=== PATIENT | female | born 1965 | race American Indian/Alaskan Native ===

== ENCOUNTER 2019-09-19 11:09 | Emergency (ER) | payer OTHER ==
[2019-09-19 11:22] VITALS: BP 137/83
--- NOTE | 2019-09-19 11:25 | Emergency Department Report ---
Chief Complaint: Upper Respiratory Infection Stated Complaint: DIZZY/LIGHT HEADED/HOT/COLD - HPI History of Present Illness: 54 yo female who has been feeling hot and cold with fatigue for one week. No cough. No sore throat. Treating with vitamin C. On exam: well appearing, clear breath sounds, normal oropharyngeal exam flu like illness MSE performed verbal education provided dc'd home - Exam Vital Signs: Vital Signs 09/19/19 11:18 Temperature 98.9 F Pulse Rate 107 H Respiratory 20 Rate Blood Pressure 137/83 O2 Sat by Pulse 99 Oximetry MSE screening note: Focused history and physical exam performed. Due to findings the following was ordered: ED Disposition for MSE Clinical Impression: Encounter for medical screening examination Disposition: DC-01 TO HOME OR SELFCARE Is pt being admited?: No Does the pt Need Aspirin: No Condition: Stable
== END 2019-09-19 11:45 | disposition home or self-care (01) ==
LOC: ED 11:09
DX: R53.83 Other fatigue (principal); R09.89 Other specified symptoms and signs involving the circulatory and respiratory systems
CPT/HCPCS: 99282